=== PATIENT | female | born 2000 | race Caucasian/White ===

== ENCOUNTER 2022-07-12 10:54 | Outpatient (CLI) | payer OTHER, SELFPAY ==
--- NOTE | ~2022-07-12 | US_ITS ---
Thyroid ultrasound. Clinical History: Thyroid fullness Findings: Real-time sonography of the thyroid gland was performed. The right lobe measures 4.7 x 1.6 x 1.0 cm. The left lobe measures 4.3 x 1.2 x 1.5 cm. The isthmus is 3 mm in AP diameter. No thyroid nodule identified. Impression: Unremarkable exam.. Reviewed, dictated and finalized at location . Impression: Unremarkable exam..
== END 2022-07-12 10:55 | disposition home or self-care (01) ==
PROVIDERS: PCP Internal Medicine; Visit Provider Internal Medicine
DX: E07.89 Other specified disorders of thyroid (principal)
CPT/HCPCS: 76536